=== PATIENT | female | born 1985 | race Caucasian/White ===

== ENCOUNTER → 2020-05-25 | Outpatient (CLI) | payer BC | LOC: GMA MATASK 16:59 | PROVIDERS: ATTEND Family Medicine | DX: R30.0 Dysuria (principal) ==

== ENCOUNTER → 2020-06-10 | Outpatient (CLI) | payer BC | LOC: GMA MATASK 14:09 | PROVIDERS: ATTEND Family Medicine | DX: R30.0 Dysuria (principal) ==